=== PATIENT | female | born 1965 | race African-American/Black ===

== ENCOUNTER 2017-06-17 16:02 | Emergency (ER) | payer OTHER ==
[~2017-06-17] VITALS: Ht 162.6 cm; Wt 78.0 kg
[2017-06-17 16:41] VITALS: BP 160/97
--- NOTE | 2017-06-17 16:41 | NUR ---
51 F BIBA WITH C/O ALOC DURING DIALYSIS; PT IS ALTERED; GCS=14; MOVING ALL FOUR EXTREMITIES; RR ARE EVEN AND UNLABORED; SKIN IS PINK/WARM/DRY; VSS; PATIENT POSITIONED FOR COMFORT; HOB ELEVATED; BEDRAILS UP X2; BED DOWN. ER MD MADE AWARE OF PT STATUS.
[2017-06-17 17:33] LABS: BASOPHILS # (AUTO) 0.2 K/uL (0.00-0.22); EOSINOPHILS # (AUTO) 0.1 K/uL (0-0.4); HEMATOCRIT 33.3 % (36-48); HEMOGLOBIN 10.7 g/dL (12.0-16.0); LYMPHOCYTES # (AUTO) 1.4 K/uL (2.5-16.5); MEAN CORPUSCULAR HEMOGLOBIN 27 pg (27-31); MEAN CORPUSCULAR HGB CONC 32 g/dL (33-37); MEAN CORPUSCULAR VOLUME 83 fL (80-94); MONOCYTES # (AUTO) 0.6 K/uL (0.8-1.0); NEUTROPHILS # (AUTO) 3.5 K/uL (1.8-7.7); PLATELET COUNT (AUTO) 336 K/uL (140-450); RED BLOOD CELL COUNT(AUTO) 4.04 MIL/uL (4.20-5.40); RED CELL DISTRIBUTION WIDTH 14.7 % (11.6-13.7); WHITE BLOOD COUNT (AUTO) 5.8 K/uL (4.8-10.8)
[2017-06-17 17:54] LABS: ALBUMIN 3.3 g/dL (3.4-5.0); ANION GAP 13.7 (8-16); CARBON DIOXIDE 31.2 mmol/L (21-32); CREATININE 3.7 mg/dL (0.6-1.3); POTASSIUM 3.9 mmol/L (3.5-5.1); TOTAL BILIRUBIN 0.7 mg/dL (0.0-1.0)
[2017-06-17 17:56] LABS: PROTHROMBIN TIME 11.9 secs (10.8-13.4)
[2017-06-17 19:14] LABS: APPEARANCE,URINE HAZY (CLEAR); BILIRUBIN,URINE NEGATIVE (NEGATIVE); BLOOD, URINE 2+ (NEGATIVE); COLOR,URINE YELLOW (YELLOW); LEUKOCYTE ESTERASE ,URINE 1+ (NEGATIVE); NITRITE, URINE NEGATIVE (NEGATIVE); PH,URINE 8.5 (5.0-9.0); UGLUCOSE NEGATIVE (NEGATIVE)
[2017-06-17 19:18] LABS: RBC,URINE 11-20 (MOD) /HPF (0-5); WBC,URINE 80-100 /HPF (0-5)
[2017-06-17 19:29] LABS: BARBITURATE, URINE NEG. ng/ml (NEG <=200); BENZODIAZEPINE, URINE NEG. ng/mL (NEG <=200); CANNABINOID, URINE NEG. ng/mL (NEG <=50); COCAINE, URINE NEG. ng/mL (NEG <=300); OPIATE, URINE NEG. ng/mL (NEG <=2000); PHENCYCLIDINE SCREEN,URINE NEG. ng/mL (NEG <=25)
--- NOTE | 2017-06-17 20:06 | NUR ---
Darcy sierra in EDM - 06/17/17 at 2103 by MEDWAV Patient discharged with v/s stable. Written and verbal after care instructions given and explained. Patient verbalized understanding. Ambulatory with steady gait. All questions addressed prior to discharge. Advised to follow up with PMD.
[2017-06-17] MEDS ORDERED: ONDANSETRON 4 MG ODT PO ONE (20:35)
[2017-06-17] MEDS ORDERED: ONDANSETRON 4 MG TAB ONE (20:46)
[2017-06-17 21:00] VITALS: BP 151/92
--- NOTE | 2017-06-17 21:00 | NUR ---
Patient discharged with v/s stable. Written and verbal after care instructions given and explained. Patient alert, oriented and verbalized understanding of instructions. Ambulatory with steady gait. All questions addressed prior to discharge. ID band removed. Patient advised to follow up with PMD. Rx of ZOFRAN 4MG given. Patient educated on indication of medication including possible reaction and side effects. Opportunity to ask questions provided and answered.
== END 2017-06-17 21:00 | disposition home or self-care (01) ==
LOC: MED 16:02
DX: R11.2 Nausea with vomiting, unspecified (principal); R53.1 Weakness; N18.6 End stage renal disease; Z99.2 Dependence on renal dialysis
CPT/HCPCS: 36415; 70450; 71010; 80053; 80305; 81001; 81025; 82948; 83690; 84484; 85025; 85610; 85730; 87086; 93005; 99285; Q0092; Q0162